=== PATIENT | female | born 1990 | race Caucasian/White ===

== ENCOUNTER 2017-04-22 10:00 | Inpatient (IN) | payer SELFPAY ==
[2017-04-22 12:26] LABS: #Eosinphils 0.2 thou/uL (0.0-0.7); #Monocytes 0.4 thou/uL (0.11-0.59); #Neutrophils 4.6 thou/uL (1.40-6.50); %Basophils 0.6 % (0.0-1.0); %Eosinophils 2.3 % (0.0-10.0); %Lymphocytes 27.8 % (21.0-51.0); %Monocytes 5.5 % (0.0-10.0); Hematocrit 39.5 % (36.0-47.0); Mean Platelet Volume 8.2 fL (7.4-10.4); White Blood Cell (WBC) Count 7.2 thou/uL (4.8-10.8)
[2017-04-22] MEDS ORDERED: Ketorolac Tromethamine 30 MG/ML VIAL ONE (12:37)
[2017-04-22 12:45] LABS: Anion Gap 12 mmol/L (10-20); BUN (Urea Nitrogen) 7 mg/dL (7.0-18.7); Calc. Creatinine Clearance 0 mL/min (70-130); Calcium 9.1 mg/dL (7.8-10.44); Carbon Dioxide 24 mmol/L (22-29); Chloride 106 mmol/L (98-107); Estimated GFR-MDRD Greater than 90
--- NOTE | 2017-04-22 13:03 | RAD ---
LEFT INDEX FINGER 3 VIEWS: Date: 04/22/17 HISTORY: Left index finger pain and swelling. FINDINGS: Soft tissue swelling is apparent. No acute fracture, dislocation, or radiopaque foreign bodies are v isible. IMPRESSION: Soft tissue swelling. No acute osseous abnormalities are demonstrated. POS: [facility]
[2017-04-22 15:06] VITALS: BMI 37.8
[2017-04-22] MEDS ORDERED: Ondansetron HCl/PF 4 MG/2 ML Vial IVP PRN (15:19)
[2017-04-22] MEDS ORDERED: Ondansetron ODT 4 MG TAB SL PRN (15:19)
[2017-04-22] MEDS ORDERED: Ketorolac Tromethamine 30 MG/ML VIAL IVP PRN (22:21)
[2017-04-22] MEDS ORDERED: ADMIXTURE FEE IVPB SCH (22:30)
[2017-04-22] MEDS ORDERED: AMPICILLIN IVPB SCH (22:30)
[2017-04-22] MEDS ORDERED: SODIUM CHLORIDE IVPB SCH (22:30)
[2017-04-22] MEDS ORDERED: SULBACTAM IVPB SCH (22:30)
[2017-04-23] MEDS: ADMIXTURE FEE IVPB SCH ×2 (05:50→14:22)
[2017-04-23] MEDS: SULBACTAM IVPB SCH ×2 (05:50→14:22)
[2017-04-23] MEDS: AMPICILLIN IVPB SCH ×2 (05:50→14:22)
[2017-04-23] MEDS: SODIUM CHLORIDE IVPB SCH ×2 (05:50→14:22)
[2017-04-23 06:37] LABS: #Basophils 0.1 thou/uL (0.0-0.2); #Eosinphils 0.2 thou/uL (0.0-0.7); #Monocytes 0.5 thou/uL (0.11-0.59); #Neutrophils 3.9 thou/uL (1.40-6.50); %Basophils 0.9 % (0.0-1.0); %Eosinophils 3.2 % (0.0-10.0); %Lymphocytes 30.5 % (21.0-51.0); %Monocytes 6.8 % (0.0-10.0); Hematocrit 36.3 % (36.0-47.0); Mean Platelet Volume 8.3 fL (7.4-10.4); Red Blood Cell (RBC) Count 4.15 mill/uL (4.20-5.40); White Blood Cell (WBC) Count 6.6 thou/uL (4.8-10.8)
[2017-04-23 12:20] VITALS: BP 134/94; TEMP 97.6
[2017-04-23] MEDS ORDERED: Sodium Chloride 0.9% 10 ML ONE (14:00)
[2017-04-23] MEDS ORDERED: cloNIDine 0.1 MG TAB PO PRN (15:38)
--- NOTE | 2017-04-23 18:09 | CON ---
DATE OF CONSULTATION: 04/23/2017 PRIMARY CARE PHYSICIAN: The patient does not have a primary care physician. CHIEF COMPLAINT: Pain and swelling in the left index finger. REASON FOR CONSULTATION: Aid in medical management. ATTENDING PHYSICIAN: Tarik Dupree M.D. HISTORY OF PRESENT ILLNESS: Ms. De Souza is a pleasant 26-year-old female that says that on Friday anant lynn woke up and noticed some swelling in her left index finger. She says it was kind of itching and b urning, and she thought it was possibly a mosquito bite or allergic reaction. She put some Benadryl on it and took some allergy medication, but then it continued, and the night prior to admission, anant lynn noticed that the area became numb and it was swelling up to the proximal joint and she started hav ing some fevers and chills, and for this reason, she felt it was best to come to have it checked out . She went to the walk-in clinic where they looked at it and told her she should go to the emergenc y room for further evaluation. There she was seen and evaluated and admitted by Dr. Dupree, the h and surgeon, and we were consulted for medical management. Currently, the patient says that after s he has been given some IV antibiotics, the swelling has gone down significantly as well as the pain, and currently, she has no specific complaints. PAST MEDICAL HISTORY: Negative. PAST SURGICAL HISTORY: She has had a x2. ALLERGIES: AMOXICILLIN. MEDICATIONS: None. SOCIAL HISTORY: She is a nonsmoker. She rarely drinks. She is and has two children. FAMILY HISTORY: No history of any inheritable diseases. PHYSICAL EXAMINATION: GENERAL: She is alert and oriented. She appears to be in no acute distress. VITAL SIGNS: Her blood pressure is 128/83, heart rate 67, respiratory rate is 16, temperature is 98 . HEENT: Pupils are equal, round, and reactive. Extraocular muscles are intact. Her sclerae are ani cteric. Throat no erythema, no exudates. NECK: No adenopathy, no bruits. LUNGS: Clear. There is no wheezing, no rales. CARDIOVASCULAR: She has a normal S1 and S2. She did have a slight flow murmur, very soft, grade 1/ 6. ABDOMEN: Soft, it is nontender, nondistended. Positive for bowel sounds. No rebound and no guardi ng. EXTREMITIES: There is some mild erythema on the MIP joint on the index finger of the left hand. Th ere is no fluctuance, just some mild erythema and swelling and just a very small amount of induratio n. She has got full mobility at the index finger and the hand. There is no surrounding erythema or streaking. LABORATORY RESULTS: Her white blood cell count 6.6, hemoglobin 12.4, hematocrit is 36.3, platelet c ount is 191. Sodium 138, potassium 3.9, chloride is 106, CO2 is 24, BUN of 7, creatinine 0.68 and g lucose is 96. ASSESSMENT AND PLAN: This is a pleasant 26-year-old female that is being admitted for cellulitis of the left index finger. Clinically, there does not appear to be any evidence of significant abscess . I would agree with continuing the IV antibiotics, as the patient is currently on ampicillin/sulba ctam. However, caution should be used since the patient has a stated allergy of amoxicillin. How er, there has been no reaction as of yet. She appears to be a fairly healthy 26-year-old without an y significant chronic illnesses. Therefore, no further recommendations from the medical standpoint other than placing her on p.r.n. medication for blood pressure should this be an issue.
--- NOTE | 2017-04-24 00:37 | HP ---
PREOPERATIVE DIAGNOSIS: Left index finger cellulitis with possible bug bite related abscess. CHIEF COMPLAINT: Left hand swelling, erythema, and pain. HISTORY OF PRESENT ILLNESS: The patient reports approximately 4-day history of progressive onset of numbness, erythema, localized pain, poor ability to move her fingers of the left hand, especially i ndex finger. Afterwards she felt might be a \\\\"bug bite\\\\" which she did not actually visualize. S he has had never had such problem in the past. She reports local numbness and tingling, burning sen sation with motion especially flexion and sensation of warmth along the finger. PAST MEDICAL HISTORY: Noncontributory to include the patient is nulliparous and is a student. She reports no limitation in activities of daily living and is fully able to work. PHYSICAL EXAMINATION: The patient is awake, alert and oriented x3, mildly obese female, who is in n o acute distress except for the left upper extremity. Here, she has pain with passive extension and flexion beyond approximately 20-30 degrees in each direction at this digit interphalangeal and meta carpophalangeal joints. There is minimal lymphadenitis seen in the axillary region or in the medial epicondyle. She has T1. There is an area of erythema approximately 5 cm, seen around the ar ea of slightly raised region with no fluctuance in the center of the dorsal proximal phalanx of the left index finger. There is no pain with stretch, no fusiform swelling along the tendon sheath, and as a matter of fact, the flexor sheath is totally uninvolved, and there is no break in the skin or wound. ASSESSMENT AND RECOMMENDATIONS: Cellulitis with and without abscess: Recommend the patient to have 24 hours of IV medications to fight an abscess. If this resolves or nearly completely resolves, di emersonge on oral medication. If it does not, the patient will stay in the hospital.
--- NOTE | 2017-04-24 07:39 | DIS ---
ADMISSION DIAGNOSIS: Left index finger cellulitis. DISCHARGE DIAGNOSIS: Left index finger cellulitis. HOSPITAL COURSE: The patient was admitted after evaluation in the emergency room by josafat Desouza here it looked like she may have early abscess, but had a low white blood cell count, and history of unknown etiologies for the left index finger. She felt it might be secondary to bug bite. There i s a small central thickened area of less than 1 mm only, but no evidence of fluctuance. She underwent 24 hours of IV antibiotics and a 5 cm area was down to 5 mm area of erythema with no f luctuance. No swelling or tenderness seen. The borderline pain that she had around the joints in t his area has gone by the time of this evaluation, 1700 hours on 04/23/2017. ASSESSMENT ABD RECOMMENDATIONS: Resolving cellulitis. Plan regular diet. She will be able to do a ctivity as tolerated. She told me that she does not work and has duties around the house. We treat ed her with clindamycin antibiotics 300 mg 1 tablet 3 times a day, and for pain, Toradol, which also will help with the swelling and erythema. I warned the patient that on follow-up 5 days from now o n Friday, if not completely resolved, then she will need to have incision and drainage as an outpati ent here in the hospital at [facility].
== END 2017-04-23 18:45 | disposition home or self-care (01) | DRG 603 ==
LOC: ERS 10:00 → SURG A 12:30 → 3SE 04-23 11:11
PROVIDERS: ADMIT Orthopaedic Surgery Hand Surgery; ATTEND Orthopaedic Surgery Hand Surgery
DX: L03.012 Cellulitis of left finger (principal); L02.512 Cutaneous abscess of left hand; S60.461A Insect bite (nonvenomous) of left index finger, initial encounter; Z88.0 Allergy status to penicillin; W57.XXXA Bitten or stung by nonvenomous insect and other nonvenomous arthropods, initial encounter
CPT/HCPCS: 36415; 80048; 85025; 85652; 86140; 96365; 96366; 96368; 96375; A4216; J0295; J0744; J1885; J3370; J7050

== ENCOUNTER 2017-08-31 09:52 | Emergency (ER) | payer SELFPAY ==
[2017-08-31 11:32] LABS: Bilirubin Negative (Negative); Blood, Urine Small (Negative); Clarity CLOUDY (Clear); Glucose, Urine (Dipstick) Negative (Negative); Leukocyte Negative (Negative); Nitrite Negative (Negative); Protein, Urine (Dipstick) Trace mg/dL (Neg-Trace); Specific Gravity, Urine 1.021 (1.002-1.036); pH, Urine 5.5 (5.0-9.0)
[2017-08-31 11:34] LABS: Bacteria/HPF None Seen HPF (None Seen); Hyaline Casts/LPF 4-6 HYALINE CAST LPF (0-3 Hyaline); Pathc Cast-AUWi Flag 0.94 (0-2.49); WBC/HPF 0-3 HPF (0-3)
[2017-08-31 11:35] LABS: Pregnancy Test - Urine (BHCG) Negative (Negative); Pregu Control Background? CLEAR/WHITE (CLR/WHITE); Pregu Control Bar Appear? YES (CONTROL BAR); Specific Gravity 1.021 (1.002-1.036)
[2017-08-31 11:53] LABS: ALT (SGPT) 39 U/L (8-55); AST (SGOT) 25 U/L (5-34); Albumin 4.1 g/dL (3.5-5.0); Alkaline Phosphatase 70 U/L (40-150); Anion Gap 13 mmol/L (10-20); BUN (Urea Nitrogen) 9 mg/dL (7.0-18.7); Bilirubin, Total 0.4 mg/dL (0.2-1.2); Calc. Creatinine Clearance 0 mL/min (70-130); Carbon Dioxide 20 mmol/L (22-29); Chloride 106 mmol/L (98-107); Estimated GFR-MDRD Greater than 90; Glucose 112 mg/dL (70-105); Protein, Total 7.1 g/dL (6.0-8.3); Sodium 135 mmol/L (136-145)
[2017-08-31 12:06] LABS: #Basophils 0.1 thou/uL (0.0-0.2); #Eosinphils 0.1 thou/uL (0.0-0.7); #Lymphocytes 1.9 thou/uL (1.20-3.40); #Monocytes 0.4 thou/uL (0.11-0.59); #Neutrophils 5.3 thou/uL (1.40-6.50); %Basophils 0.9 % (0.0-1.0); %Eosinophils 1.9 % (0.0-10.0); %Lymphocytes 24.2 % (21.0-51.0); %Monocytes 4.6 % (0.0-10.0); %Neutrophils 68.5 % (42.0-75.0); Hemoglobin 13.9 g/dL (12.0-16.0); Mean Corpuscular HGB CONC 34.7 g/dL (32.0-36.0); Mean Corpuscular Hemoglobin 30.2 pg (27.0-31.0); Mean Platelet Volume 7.7 fL (7.4-10.4); Platelet Count 213 thou/uL (130-400); RBC Distribution Width 11.9 % (11.5-14.5); White Blood Cell (WBC) Count 7.7 thou/uL (4.8-10.8)
--- NOTE | 2017-08-31 12:52 | ULT ---
TRANSABDOMINAL TRANSVAGINAL PELVIC ULTRASOUND: INDICATION: Pelvic pain. TECHNIQUE: Mejia scale, color vascular duplex with spectral analysis was performed of the pelvis. FINDINGS: The uterus measures 8.2 x 4.9 x 5.3 cm. The uterus is retroverted in positioning. The endometrial s tripe measured 1.2 cm. The right ovary measures 2.7 x 1.5 x 1.5 cm. The left ovary measures 2.6 x 2.2 cm. There is normal flow to both ovaries. A small amount of free fluid is present within the pelvis. IMPRESSION: No acute sonographic abnormality within the pelvis. POS: [facility]
== END 2017-08-31 12:28 | disposition home or self-care (01) ==
LOC: ERS 09:52
DX: R10.32 Left lower quadrant pain (principal); R10.31 Right lower quadrant pain; R11.2 Nausea with vomiting, unspecified; I10 Essential (primary) hypertension; Z87.891 Personal history of nicotine dependence
CPT/HCPCS: 36415; 76856; 80053; 81003; 81015; 81025; 85025

== ENCOUNTER 2017-11-01 03:07 | Emergency (ER) | payer SELFPAY ==
[2017-11-01] MEDS ORDERED: cefTRIAXone\\ROCEPHIN 2 GM VIAL ONE (03:53)
[2017-11-01] MEDS ORDERED: Dexamethasone 10 MG/ML VIAL ONE (03:53)
[2017-11-01] MEDS ORDERED: Lidocaine 1% PF 5 ML VIAL ONE (03:54)
--- NOTE | 2017-11-01 08:09 | RAD ---
PORTABLE CHEST: Date: 11/01/17 HISTORY: Cough. FINDINGS: Lungs are clear. Heart and mediastinum unremarkable. IMPRESSION: No acute abnormality. POS: [facility]
== END 2017-11-01 04:30 | disposition home or self-care (01) ==
LOC: ERS 03:07
DX: J01.90 Acute sinusitis, unspecified (principal); Z87.891 Personal history of nicotine dependence
CPT/HCPCS: 71045; 96372; J0696; J1100; J2001

== ENCOUNTER 2018-04-01 10:29 | Emergency (ER) | payer SELFPAY ==
[2018-04-01 11:12] LABS: #Basophils 0.1 thou/uL (0.0-0.2); #Eosinphils 0.2 thou/uL (0.0-0.7); #Lymphocytes 1.9 thou/uL (1.20-3.40); #Monocytes 0.4 thou/uL (0.11-0.59); #Neutrophils 4.8 thou/uL (1.40-6.50); %Basophils 0.8 % (0.0-1.0); %Eosinophils 2.3 % (0.0-10.0); %Lymphocytes 26.5 % (21.0-51.0); %Monocytes 4.9 % (0.0-10.0); %Neutrophils 65.5 % (42.0-75.0); Hemoglobin 13.4 g/dL (12.0-16.0); Mean Corpuscular HGB CONC 33.9 g/dL (32.0-36.0); Mean Corpuscular Hemoglobin 29.5 pg (27.0-31.0); Mean Platelet Volume 7.8 fL (7.4-10.4); Platelet Count 223 thou/uL (130-400); RBC Distribution Width 11.8 % (11.5-14.5); Red Blood Cell (RBC) Count 4.55 mill/uL (4.20-5.40); White Blood Cell (WBC) Count 7.3 thou/uL (4.8-10.8)
[2018-04-01 11:44] LABS: ALT (SGPT) 51 U/L (8-55); AST (SGOT) 38 U/L (5-34); Albumin 4.3 g/dL (3.5-5.0); Alkaline Phosphatase 72 U/L (40-150); Anion Gap 12 mmol/L (10-20); BUN (Urea Nitrogen) 8 mg/dL (7.0-18.7); Bilirubin, Total 0.8 mg/dL (0.2-1.2); Calc. Creatinine Clearance 0 mL/min (70-130); Calcium 9.3 mg/dL (7.8-10.44); Carbon Dioxide 23 mmol/L (22-29); Chloride 104 mmol/L (98-107); Estimated GFR-MDRD Greater than 90; Globulin 2.9 g/dL (2.4-3.5); Glucose 108 mg/dL (70-105); Lipase 25 U/L (8-78); Potassium 3.8 mmol/L (3.5-5.1); Protein, Total 7.2 g/dL (6.0-8.3); Sodium 135 mmol/L (136-145)
[2018-04-01 11:50] LABS: Bilirubin Negative (Negative); Blood, Urine Negative (Negative); Clarity CLEAR (Clear); Glucose, Urine (Dipstick) Negative (Negative); Leukocyte Negative (Negative); Nitrite Negative (Negative); Protein, Urine (Dipstick) Trace mg/dL (Neg-Trace); Specific Gravity, Urine 1.019 (1.002-1.036); Urobilinogen 0.2 mg/dL (0.2-1.0); pH, Urine 5.5 (5.0-9.0)
[2018-04-01 11:54] LABS: Pregnancy Test - Urine (BHCG) Negative (Negative); Pregu Control Background? CLEAR/WHITE (CLR/WHITE); Pregu Control Bar Appear? YES (CONTROL BAR); Specific Gravity 1.019 (1.002-1.036)
== END 2018-04-01 12:26 | disposition home or self-care (01) ==
LOC: ERS 10:29
DX: N92.6 Irregular menstruation, unspecified (principal); Z87.891 Personal history of nicotine dependence
CPT/HCPCS: 36415; 80053; 81003; 81025; 83690; 85025; 99284

== ENCOUNTER 2018-06-11 13:29 | Emergency (ER) | payer SELFPAY ==
[2018-06-11] MEDS ORDERED: Lidocaine 1% (PF) 30 ML VIAL ONE (14:04)
[2018-06-11] MEDS ORDERED: Adacel (T-DAP) 0.5 ML SYRINGE ONE (14:28)
== END 2018-06-11 14:36 | disposition home or self-care (01) ==
LOC: ERS 13:29
DX: L02.411 Cutaneous abscess of right axilla (principal); Z87.891 Personal history of nicotine dependence
CPT/HCPCS: 10061; 90471; 90715; J2001

== ENCOUNTER 2018-06-15 07:42 | Emergency (ER) | payer SELFPAY | END 2018-06-15 09:01 | disposition home or self-care (01) | LOC: ERS 07:42 | DX: Z48.817 Encounter for surgical aftercare following surgery on the skin and subcutaneous tissue (principal); Z87.891 Personal history of nicotine dependence; Z79.899 Other long term (current) drug therapy | CPT/HCPCS: 99282 ==

== ENCOUNTER 2018-08-18 03:58 | Observation (INO) | payer SELFPAY ==
[2018-08-18 04:45] LABS: BHCG - Serum Negative (NEGATIVE); Pregs Control Background? CLEAR/WHITE (CLR/WHITE); Pregs Control Bar Appear? YES (CONTROL BAR)
[2018-08-18 04:46] LABS: #Basophils 0.1 thou/uL (0.0-0.2); #Eosinphils 0.2 thou/uL (0.0-0.7); #Lymphocytes 2.1 thou/uL (1.20-3.40); #Monocytes 0.6 thou/uL (0.11-0.59); #Neutrophils 4.1 thou/uL (1.40-6.50); %Basophils 1.3 % (0.0-1.0); %Eosinophils 3.4 % (0.0-10.0); %Lymphocytes 29.1 % (21.0-51.0); %Monocytes 8.3 % (0.0-10.0); %Neutrophils 57.9 % (42.0-75.0); Hemoglobin 13.5 g/dL (12.0-16.0); Mean Corpuscular HGB CONC 34.3 g/dL (32.0-36.0); Mean Corpuscular Hemoglobin 30.5 pg (27.0-31.0); Mean Corpuscular Volume 88.9 fL (78.0-98.0); Mean Platelet Volume 8.5 fL (7.4-10.4); Platelet Count 228 thou/uL (130-400); RBC Distribution Width 12.1 % (11.5-14.5); Red Blood Cell (RBC) Count 4.43 mill/uL (4.20-5.40); White Blood Cell (WBC) Count 7.1 thou/uL (4.8-10.8)
[2018-08-18 05:02] LABS: ALT (SGPT) 54 U/L (8-55); AST (SGOT) 36 U/L (5-34); Albumin 4.1 g/dL (3.5-5.0); Alkaline Phosphatase 80 U/L (40-150); Anion Gap 15 mmol/L (10-20); BUN (Urea Nitrogen) 10 mg/dL (7.0-18.7); Bilirubin, Total 0.4 mg/dL (0.2-1.2); Calc. Creatinine Clearance 0 mL/min (70-130); Calcium 9.2 mg/dL (7.8-10.44); Carbon Dioxide 21 mmol/L (22-29); Chloride 107 mmol/L (98-107); Estimated GFR-MDRD Greater than 90; Globulin 2.9 g/dL (2.4-3.5); Glucose 151 mg/dL (70-105); Lipase 34 U/L (8-78); Potassium 3.9 mmol/L (3.5-5.1); Sodium 139 mmol/L (136-145)
[2018-08-18] MEDS ORDERED: Ondansetron PF 4 MG/2 ML Vial ONE ×3 (05:10→15:04)
[2018-08-18] MEDS ORDERED: Levofloxacin 500 mg/D5W 100 ml Premix Bag ONE (07:55)
--- NOTE | 2018-08-18 08:07 | HP ---
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 Has for the past 4 to 6 weeks experienced epigastric right upper quadrant pain with nausea postprandial. She presents to the emergency room with ongoing unrelenting pain. Ultrasound reveals gallstones. Plan is for laparoscopic cholecystectomy as an outpatient today. ALLERGIES: AMOXICILLIN. SOCIAL HISTORY: Tobacco, none. Alcohol, none. MEDICATIONS: None. PAST SURGICAL AND MEDICAL HISTORY: Noncontributory except for 2 C-sections. REVIEW OF SYSTEMS: Noncontributory. PHYSICAL EXAMINATION: VITAL SIGNS: Blood pressure 120/64, respiratory rate 18, and heart rate is 68. HEAD, EARS, EYES, NOSE, AND THROAT: Unremarkable. Sclerae nonicteric. LUNGS: Clear to auscultation. CARDIAC: Regular rate and rhythm. No murmur or gallop. ABDOMEN: Soft. Tenderness in the epigastrium with guarding. EXTREMITIES: Unremarkable. NEUROLOGIC: Intact. No focal deficits. SKIN: Nonjaundiced. LABORATORY DATA: White count 7 and hemoglobin 13. Comprehensive metabolic profile normal. Liver function tests normal. DIAGNOSTIC DATA: Ultrasound reveals gallstones with normal bile duct caliber. ASSESSMENT AND PLAN: Cholecystitis, cholelithiasis. We will recommend laparoscopic video cholecystectomy. Risks of infection, bleeding, visceral and biliary injury explained. Questions answered. Postoperative pain control consisting over-the- counter Tylenol 1000 mg a day and ibuprofen 200 mg 2 to 3 tablets 4 times a day. Diet and activity as tolerated without lifting restrictions discussed. Questions answered. Job ID: [id number]
[2018-08-18] MEDS ORDERED: Morphine 4 MG/ML VIAL ONE (08:47)
--- NOTE | 2018-08-18 09:01 | ULT ---
PRELIMINARY REPORT/[facility]/EMERGENTY AFTER-HOURS PROCEDURE US Abdomen Limited, Right Upper Quadrant EXAM DATE/TIME: 08/18/2018 4:31 AM CLINICAL HISTORY: 28 years old, female; Pain and signs and symptoms; Nausea and vomiting; Abdominal pain; Other:NEpigas tric to ruq; Patient HX: Ruq pain (on/off) x 1 month, worse tonight TECHNIQUE: Real-time ultrasound of the abdomen with image documentation. Examination was focused on the right up per quadrant. COMPARISON: No relevant prior studies available. FINDINGS: Liver: Enlarged and diffusely echogenic. Gallbladder: Non-mobile stone in the gallbladder neck. Wall thickness within normal limits, 2-3 mm. N Positive Salazar's sign reported. Common bile duct: Upper limit of normal in caliber, 6 mm. Pancreas: Mostly obscured by bowel gas. Visualized portion unremarkable. Right kidney: Unremarkable. No hydronephrosis. IMPRESSION: 1. Non-mobile stone in the gallbladder neck, wall thickness within normal limits. Upper normal common bile duct caliber. 2. Enlarged liver with steatosis. Thank you for allowing us to participate in the care of your patient. Dictated and Authenticated by: Vaibhav Garcia MD 08/18/2018 5:29 AM Central Time ([place] & [place]) FINAL REPORT GALLBLADDER ULTRASOUND: HISTORY: Right upper quadrant pain. COMPARISON: None. TECHNIQUE: Utilizing a multihertz transducer, sonographic imaging of the right upper quadrant is performed in th e longitudinal and transverse plane. FINDINGS: This report is in agreement with the preliminary report by [facility]. There is increased echogenicity of t he liver which may be due to hepatic steatosis or hepatocellular disease. If there is concern for he patic masses, liver mass protocol CT can be performed. There is evidence of hepatomegaly. There is a nonmobile stone in the gallbladder neck. Gallbladder wall thickness is within normal limits. Croft renato, positive Salazar's sign is reported. HIDA scan would be beneficial. Common bile duct diameter a t the upper limits of normal measuring 0.6 cm. POS: [facility]
[2018-08-18 09:26] LABS: Bilirubin Negative (Negative); Blood, Urine Negative (Negative); Clarity CLEAR (Clear); Glucose, Urine (Dipstick) Negative (Negative); Leukocyte Negative (Negative); Nitrite Negative (Negative); Protein, Urine (Dipstick) Negative (Neg-Trace); Specific Gravity, Urine 1.017 (1.002-1.036); Urobilinogen 0.2 mg/dL (0.2-1.0)
[2018-08-18 10:38] VITALS: BMI 41.1
[2018-08-18] MEDS ORDERED: Lactated Ringer's 1,000 ML IV SCH (10:45)
[2018-08-18] MEDS ORDERED: Acetaminophen 1,000 MG in Premix Bag 1 BAG IVPB SCH (11:00)
[2018-08-18] MEDS ORDERED: Ketorolac Tromethamine 30 MG/ML VIAL IVP SCH (11:00)
[2018-08-18] MEDS ORDERED: Scopolamine 1.5 mg/72 hour Patch TOP SCH (11:00)
[2018-08-18] MEDS ORDERED: Ibuprofen 600 MG TAB PO PRN (13:36)
[2018-08-18] MEDS ORDERED: traMADol HCl 50 MG TAB PO PRN ×3 (13:36→17:11)
[2018-08-18] MEDS ORDERED: Acetaminophen 500 MG TAB PO PRN (13:36)
[2018-08-18] MEDS ORDERED: Ketorolac Tromethamine 30 MG/ML VIAL ONE (13:44)
[2018-08-18] MEDS ORDERED: Bupivacaine HCl 0.5%/Epinephrine 1:200,000/PF 30 ml Vial ONE (13:46)
[2018-08-18] MEDS ORDERED: Iothalamate Meglumine 60% 50 ML VIAL FS ONE (13:48)
[2018-08-18] MEDS ORDERED: Fentanyl 100 MCG/2 ML VIAL ONE ×2 (13:51→14:59)
[2018-08-18] MEDS ORDERED: Midazolam HCl 2 mg/2 ml Vial ONE (14:03)
[2018-08-18] MEDS ORDERED: SUGAMMADEX SODIUM 200 MG/2 ML VIAL ONE (14:44)
[2018-08-18] MEDS ORDERED: Promethazine HCl 25 MG/ML VIAL ONE (15:01)
[2018-08-18] MEDS ORDERED: Glycopyrrolate 0.2 MG/ML 5 ML SYRINGE ONE (15:04)
[2018-08-18] MEDS ORDERED: Dexamethasone 20 MG/5 ML VIAL ONE (15:04)
[2018-08-18] MEDS ORDERED: Rocuronium Bromide 10 MG/ML (10ML VIAL) ONE (15:04)
[2018-08-18] MEDS ORDERED: PROPOFOL 200 MG/20 ML VIAL ONE (15:04)
[2018-08-18] MEDS ORDERED: Lidocaine 1% PF 5 ML VIAL ONE (15:04)
[2018-08-18] MEDS ORDERED: Promethazine HCl 25 MG/ML VIAL IM/IV PRN (15:50)
[2018-08-18] MEDS ORDERED: Ondansetron HCl/PF 4 MG/2 ML Vial IVP PRN (15:50)
[2018-08-18] MEDS ORDERED: Non-Formulary Medication 1 EACH PO PRN (15:50)
--- NOTE | 2018-08-18 16:21 | OP ---
DATE OF PROCEDURE: 08/18/2018 PREOPERATIVE DIAGNOSES: 1. Cholecystitis. 2. Cholelithiasis. POSTOPERATIVE DIAGNOSES: 1. Cholecystitis. 2. Cholelithiasis. PROCEDURE PERFORMED: Laparoscopic video cholecystectomy. SURGEON: Rashad Lund MD ANESTHESIA: General, local 0.5% Marcaine with epinephrine 30 mL. DESCRIPTION OF PROCEDURE: The patient was taken to the operating room, where under general anesthesia, abdomen was prepared with ChloraPrep and draped in routine fashion. Local anesthetic was infiltrated in the skin and subcutaneous tissue at each port site. 0.5% Marcaine with epinephrine 30 mL, total volume used. An infraumbilical incision was made. Pneumoperitoneum to 15 mmHg was obtained with Veress needle, replaced with a 5 port, laparoscope inserted. Right subxiphoid incision was made and 11 port placed. Right subcostal incision was made. Midclavicular and anterior axillary lines and 5 ports placed. The fundus of the gallbladder was grasped at the cephalad. Infundibulum grasped and reflected laterally. Cystic artery and duct were dissected free. Critical view obtained. Cystic artery and duct double clipped proximally, divided. Gallbladder was dissected free from liver bed obtaining good hemostasis prior to division of the final attachments. Gallbladder and contents removed, submitted to Pathology. There was large stone obstructing the gallbladder outlet. Hemostasis was ensured with the cautery. Irrigant and pneumoperitoneum evacuated. All instruments removed. All skin incisions were approximated with interrupted subdermal 4-0 Monocryl and [place] glue applied. Job ID: [id number]
--- NOTE | 2018-08-18 16:25 | DIS ---
DATE OF ADMISSION: 08/18/2018 DATE OF DISCHARGE: 08/18/2018 DISCHARGE DIAGNOSES: 1. Cholecystitis. 2. Cholelithiasis. 3. Elevated glucose. Encouraged to see her primary care physician for glucose testing. HISTORY: A 28-year-old female, 2, para 2, has gained weight recently. She has been experiencing last several weeks episodes of epigastric right upper quadrant pain, nausea postprandial. She presented to the emergency room with unrelenting pain and ultrasound revealed gallstones, normal liver function tests and lipase. She received Levaquin, Toradol, affirmatively hospitalized on the floor because of unavailability of the OR and then underwent laparoscopic cholecystectomy and discharged home postoperatively. Follow up in my office in 2 to 3 weeks. Diet and activity as tolerated. No lifting restrictions. Ultram #20 for pain refractory to Tylenol [id number] 1000 q.i.d. and Motrin [id number] 400-600 mg q.i.d. p.r.n. Job ID: [id number]
[2018-08-19 07:58] LABS: #Lymphocytes 1.4 thou/uL (1.20-3.40); #Monocytes 0.5 thou/uL (0.11-0.59); #Neutrophils 10.7 thou/uL (1.40-6.50); %Basophils 0.2 % (0.0-1.0); %Eosinophils 0.2 % (0.0-10.0); %Lymphocytes 11.4 % (21.0-51.0); %Monocytes 3.7 % (0.0-10.0); %Neutrophils 84.6 % (42.0-75.0); Hemoglobin 12.8 g/dL (12.0-16.0); Mean Corpuscular HGB CONC 33.3 g/dL (32.0-36.0); Mean Corpuscular Volume 90.1 fL (78.0-98.0); Mean Platelet Volume 8.4 fL (7.4-10.4); Platelet Count 251 thou/uL (130-400); RBC Distribution Width 11.9 % (11.5-14.5); Red Blood Cell (RBC) Count 4.28 mill/uL (4.20-5.40); White Blood Cell (WBC) Count 12.7 thou/uL (4.8-10.8)
[2018-08-19 08:10] LABS: ALT (SGPT) 64 U/L (8-55); AST (SGOT) 44 U/L (5-34); Albumin 3.8 g/dL (3.5-5.0); Alkaline Phosphatase 78 U/L (40-150); Bilirubin, Direct 0.2 mg/dL (0.1-0.3); Bilirubin, Total 0.5 mg/dL (0.2-1.2); Protein, Total 6.3 g/dL (6.0-8.3)
[2018-08-19 12:27] VITALS: BP 132/86; TEMP 97.9
--- NOTE | 2018-08-19 13:10 | PRG ---
DATE OF SERVICE: 08/19/2018 SUBJECTIVE: Ms. De Souza is doing well. She stayed overnight because of pain control. This morning, she feels good, although, she feels weaker. CBC and liver function tests are normal. She is tolerating a regular diet. OBJECTIVE: VITAL SIGNS: Temperature 97 degrees and blood pressure 132/86. LUNGS: Clear to auscultation. CARDIAC: Regular rate and rhythm. No murmur or gallop. ABDOMEN: Soft and nontender. ASSESSMENT: Status post laparoscopic cholecystectomy. PLAN: Discharge home. Follow up in my office in 2 to 3 weeks. Diet and activity as tolerated. No lifting restrictions. Home with Tylenol, ibuprofen and Ultram, if needed. Job ID: [id number]
--- NOTE | 2018-08-19 15:07 | DIS ---
DATE OF ADMISSION: 08/18/2018 DATE OF DISCHARGE: 08/19/2018 ADDENDUM: Ms. De Souza was to go home last night, but had too much pain and stayed overnight. Her liver function tests and CBC are normal. This morning, she will be discharged home. Lungs are clear to auscultation. Cardiac, regular rate and rhythm, without murmur or gallop. Abdomen is soft, nontender. Surgical sites, laparoscopic incision, well healed. Temperature 97.9 degrees, heart rate 96, blood pressure 132/86. The patient was informed of her glucose 151 and suggested that she lose weight and that she see her primary care doctor to evaluate her for early diabetes. Job ID: [id number]
== END 2018-08-19 13:45 | disposition home or self-care (01) ==
LOC: ERS 03:58 → SURG A 08:55
PROVIDERS: ADMIT Specialist; ATTEND Specialist
PROC: 0FT44ZZ Resection of Gallbladder, Percutaneous Endoscopic Approach (ICD-10-PCS; principal; 2018-08-19)
DX: K80.10 Calculus of gallbladder with chronic cholecystitis without obstruction (principal); R73.02 Impaired glucose tolerance (oral); Z87.891 Personal history of nicotine dependence; Z88.0 Allergy status to penicillin; Z91.030 Bee allergy status; Z91.018 Allergy to other foods
CPT/HCPCS: 36415; 76705; 80053; 80076; 81003; 83690; 84703; 85025; 88304; 96361; 96365; 96375; G0378; J0131; J0670; J1100; J1610; J1885; J1956; J2001; J2250; J2270; J2405; J2550; J2704; J3010; Q9961

== ENCOUNTER 2018-10-25 22:14 | Emergency (ER) | payer SELFPAY ==
[2018-10-26] MEDS ORDERED: Lidocaine 1% w/Epinephrine 1:100K 20 ML VIAL ONE (01:30)
== END 2018-10-26 02:05 | disposition home or self-care (01) ==
LOC: ERS 22:14
DX: L02.411 Cutaneous abscess of right axilla (principal); Z87.891 Personal history of nicotine dependence
CPT/HCPCS: 10060; J2001

== ENCOUNTER 2019-01-08 22:04 | Emergency (ER) | payer SELFPAY ==
[2019-01-08 22:47] LABS: #Basophils 0.1 thou/uL (0.0-0.2); #Eosinphils 0.2 thou/uL (0.0-0.7); #Lymphocytes 2.3 thou/uL (1.20-3.40); #Monocytes 0.4 thou/uL (0.11-0.59); #Neutrophils 5.6 thou/uL (1.40-6.50); %Basophils 0.8 % (0.0-1.0); %Eosinophils 2.4 % (0.0-10.0); %Lymphocytes 27.3 % (21.0-51.0); %Monocytes 4.3 % (0.0-10.0); %Neutrophils 65.2 % (42.0-75.0); Hemoglobin 14.2 g/dL (12.0-16.0); Mean Corpuscular HGB CONC 34.5 g/dL (32.0-36.0); Mean Corpuscular Hemoglobin 30.1 pg (27.0-31.0); Mean Corpuscular Volume 87.5 fL (78.0-98.0); Mean Platelet Volume 8.5 fL (7.4-10.4); Platelet Count 215 thou/uL (130-400); RBC Distribution Width 11.7 % (11.5-14.5); Red Blood Cell (RBC) Count 4.71 mill/uL (4.20-5.40); White Blood Cell (WBC) Count 8.6 thou/uL (4.8-10.8)
[2019-01-08 23:09] LABS: ALT (SGPT) 69 U/L (8-55); AST (SGOT) 46 U/L (5-34); Albumin 4.4 g/dL (3.5-5.0); Alkaline Phosphatase 80 U/L (40-150); Anion Gap 14 mmol/L (10-20); BUN (Urea Nitrogen) 13 mg/dL (7.0-18.7); Bilirubin, Total 0.4 mg/dL (0.2-1.2); Calc. Creatinine Clearance 0 mL/min (70-130); Calcium 9.7 mg/dL (7.8-10.44); Carbon Dioxide 23 mmol/L (22-29); Chloride 106 mmol/L (98-107); Estimated GFR-MDRD 89; Glucose 127 mg/dL (70-105); Lipase 38 U/L (8-78); Potassium 3.6 mmol/L (3.5-5.1); Protein, Total 7.4 g/dL (6.0-8.3); Sodium 139 mmol/L (136-145)
[2019-01-08 23:35] LABS: Pregnancy Test - Urine (BHCG) Negative (Negative); Pregu Control Background? CLEAR/WHITE (CLR/WHITE); Pregu Control Bar Appear? YES (CONTROL BAR)
[2019-01-08] MEDS ORDERED: Ketorolac Tromethamine 30 MG/ML VIAL ONE (23:37)
[2019-01-08 23:39] LABS: Bacteria/HPF None Seen HPF (None Seen); Bilirubin Negative (Negative); Blood, Urine Negative (Negative); Clarity Turbid (Clear); Glucose, Urine (Dipstick) Normal (Negative); Leukocyte 250 Leu/uL (Negative); Nitrite Negative (Negative); Protein, Urine (Dipstick) 50 mg/dL (Neg-Trace); RBC/HPF None Seen HPF (0-3); Squamous Epithelial 21-50 HPF (0-3); Urobilinogen Normal mg/dL (Less than 2); WBC/HPF 21-50 HPF (0-3)
--- NOTE | 2019-01-09 08:15 | ULT ---
PELVIC ULTRASOUND WITH CHRISTIANSEN SCALE AND DOPPLER COLOR FLOW IMAGING TRANSVAGINAL AND TRANSABDOMINAL SONOGRAPHIC IMAGING OF PELVIS: Date: 01/09/19 CLINICAL INDICATION: Emergency exam for pelvic pain. FINDINGS: The uterus is grossly unremarkable. Doppler evaluation does reveal flow to each ovary, with vascular waveforms elicited. Small physiologic appearing ovarian follicles are seen. No significant free pelvi c fluid. Endometrium is 8 mm in thickness, which is within normal limits for patient's age. IMPRESSION: No evidence of acute abnormality of the pelvis identified by sonographic evaluation. POS: [facility]
== END 2019-01-09 01:57 | disposition home or self-care (01) ==
LOC: ERS 22:04
DX: N39.0 Urinary tract infection, site not specified (principal); Z87.891 Personal history of nicotine dependence
CPT/HCPCS: 36415; 76856; 80053; 81003; 81015; 81025; 83690; 85025; 96372; J1885

== ENCOUNTER 2019-08-07 03:22 | Emergency (ER) | payer SELFPAY ==
[2019-08-07] MEDS ORDERED: diphenhydrAMINE 25 MG CAP ONE (03:50)
[2019-08-07] MEDS ORDERED: predniSONE 20 MG TAB ONE (03:50)
[2019-08-07] MEDS ORDERED: Famotidine 20 MG TAB ONE (03:50)
== END 2019-08-07 07:11 | disposition home or self-care (01) ==
LOC: ERS 03:22
DX: T78.40XA Allergy, unspecified, initial encounter (principal); Z79.899 Other long term (current) drug therapy
CPT/HCPCS: 87081; 87430; 99284; J7512; Q0163

== ENCOUNTER 2019-08-17 07:12 | Emergency (ER) | payer SELFPAY ==
[2019-08-17 07:49] LABS: #Basophils 0.1 thou/uL (0.0-0.2); #Eosinphils 0.2 thou/uL (0.0-0.7); #Lymphocytes 2.5 thou/uL (1.20-3.40); #Monocytes 0.5 thou/uL (0.11-0.59); #Neutrophils 5.1 thou/uL (1.40-6.50); %Basophils 1.2 % (0.0-1.0); %Eosinophils 2.8 % (0.0-10.0); %Lymphocytes 29.4 % (21.0-51.0); %Monocytes 5.5 % (0.0-10.0); %Neutrophils 61.1 % (42.0-75.0); Hemoglobin 13.4 g/dL (12.0-16.0); Mean Corpuscular HGB CONC 34.2 g/dL (32.0-36.0); Mean Corpuscular Hemoglobin 29.8 pg (27.0-31.0); Mean Corpuscular Volume 87.1 fL (78.0-98.0); Mean Platelet Volume 8.6 fL (7.4-10.4); Platelet Count 211 thou/uL (130-400); RBC Distribution Width 12.2 % (11.5-14.5); Red Blood Cell (RBC) Count 4.49 mill/uL (4.20-5.40); White Blood Cell (WBC) Count 8.4 thou/uL (4.8-10.8)
[2019-08-17 08:10] LABS: ALT (SGPT) 45 U/L (8-55); AST (SGOT) 28 U/L (5-34); Albumin 4.2 g/dL (3.5-5.0); Alkaline Phosphatase 76 U/L (40-110); Anion Gap 13 mmol/L (10-20); BUN (Urea Nitrogen) 9 mg/dL (7.0-18.7); Bilirubin, Total 0.4 mg/dL (0.2-1.2); Calc. Creatinine Clearance 0 mL/min (70-130); Carbon Dioxide 26 mmol/L (22-29); Chloride 104 mmol/L (98-107); Estimated GFR-MDRD Greater than 90; Globulin 2.6 g/dL (2.4-3.5); Glucose 114 mg/dL (70-105); Potassium 4.3 mmol/L (3.5-5.1); Protein, Total 6.8 g/dL (6.0-8.3); Sodium 139 mmol/L (136-145)
--- NOTE | 2019-08-17 09:01 | RAD ---
CHEST 1 VIEW PORTABLE: HISTORY: Chest pain that began in the middle of the night, cough. COMPARISON: 11/01/2017. FINDINGS: Heart size is normal. The lungs are clear. No confluent pneumonia, overt edema, or pleural effusion . IMPRESSION: No acute intrathoracic disease. POS: [facility]
== END 2019-08-17 10:15 | disposition home or self-care (01) ==
LOC: ERS 07:12
DX: R07.9 Chest pain, unspecified (principal)
CPT/HCPCS: 36415; 71045; 80053; 84484; 85025; 93005

== ENCOUNTER 2019-08-26 02:37 | Emergency (ER) | payer SELFPAY ==
--- NOTE | 2019-08-26 07:38 | RAD ---
XR Chest Pa Lat STANDARD History: Cough Comparison: Radiograph August 17, 2019 Findings: Lungs are clear. No pneumothorax or effusion. Cardiac silhouette and mediastinal contours a re within normal limits. No acute osseous abnormality. Impression: No acute intrathoracic abnormality.
--- NOTE | 2019-08-29 00:53 | EKG ---
Test Reason : Blood Pressure : / mmHG Vent. Rate : 073 BPM Atrial Rate : 073 BPM P-R Int : 142 ms QRS Dur : 084 ms QT Int : 394 ms P-R-T Axes : 020 027 005 degrees QTc Int : 434 ms Normal sinus rhythm Cannot rule out Anterior infarct , age undetermined Abnormal ECG Confirmed by THAI TRIPLETT ([id number]), photographic editor SHARRI VARELA ([id number]) on 08/29/2019 12:52:53 AM Referred By: Confirmed By:THAI TRIPLETT
== END 2019-08-26 03:40 | disposition home or self-care (01) ==
LOC: ERS 02:37
DX: R07.89 Other chest pain (principal)
CPT/HCPCS: 71046; 93005

== ENCOUNTER 2019-09-13 17:26 | Emergency (ER) | payer SELFPAY ==
[2019-09-13 17:54] LABS: #Eosinphils 0.1 thou/uL (0.0-0.7); #Lymphocytes 0.8 thou/uL (1.20-3.40); #Monocytes 0.5 thou/uL (0.11-0.59); #Neutrophils 9.9 thou/uL (1.40-6.50); %Basophils 0.1 % (0.0-1.0); %Lymphocytes 7.2 % (21.0-51.0); %Monocytes 4.6 % (0.0-10.0); %Neutrophils 87.1 % (42.0-75.0); Hemoglobin 14.4 g/dL (12.0-16.0); Mean Corpuscular HGB CONC 34.4 g/dL (32.0-36.0); Mean Corpuscular Hemoglobin 29.7 pg (27.0-31.0); Mean Corpuscular Volume 86.6 fL (78.0-98.0); Mean Platelet Volume 8.2 fL (7.4-10.4); Platelet Count 208 thou/uL (130-400); Red Blood Cell (RBC) Count 4.82 mill/uL (4.20-5.40); White Blood Cell (WBC) Count 11.4 thou/uL (4.8-10.8)
[2019-09-13 18:17] LABS: ALT (SGPT) 46 U/L (8-55); AST (SGOT) 25 U/L (5-34); Albumin 4.4 g/dL (3.5-5.0); Alkaline Phosphatase 75 U/L (40-110); Anion Gap 11 mmol/L (10-20); BUN (Urea Nitrogen) 10 mg/dL (7.0-18.7); Bilirubin, Total 0.9 mg/dL (0.2-1.2); Calc. Creatinine Clearance 0 mL/min (70-130); Calcium 8.9 mg/dL (7.8-10.44); Carbon Dioxide 26 mmol/L (22-29); Chloride 103 mmol/L (98-107); Estimated GFR-MDRD 85; Globulin 2.7 g/dL (2.4-3.5); Glucose 129 mg/dL (70-105); Lipase 29 U/L (8-78); Potassium 3.9 mmol/L (3.5-5.1); Protein, Total 7.1 g/dL (6.0-8.3); Sodium 136 mmol/L (136-145)
[2019-09-13 19:38] LABS: Bilirubin Negative (Negative); Blood, Urine Negative (Negative); Clarity Turbid (Clear); Glucose, Urine (Dipstick) Normal (Negative); Leukocyte 25 Leu/uL (Negative); Nitrite Negative (Negative); Protein, Urine (Dipstick) 300 mg/dL (Neg-Trace); RBC/HPF 0-3 HPF (0-3)
[2019-09-13 19:40] LABS: Bacteria/HPF 1+ HPF (None Seen)
[2019-09-13 19:41] LABS: Pregnancy Test - Urine (BHCG) Negative (Negative); Pregu Control Background? CLEAR/WHITE (CLR/WHITE); Pregu Control Bar Appear? YES (CONTROL BAR); Specific Gravity 1.032 (1.002-1.036)
[2019-09-13] MEDS ORDERED: Ondansetron PF 4 MG/2 ML Vial ONE (19:48)
== END 2019-09-13 20:46 | disposition home or self-care (01) ==
LOC: ERS 17:26
DX: K52.9 Noninfective gastroenteritis and colitis, unspecified (principal); R55 Syncope and collapse; F41.9 Anxiety disorder, unspecified
CPT/HCPCS: 36415; 80053; 81003; 81015; 81025; 83690; 85025; 93005; 96361; 96374; J2405

== ENCOUNTER 2020-09-21 06:08 | Emergency (ER) | payer MEDICAID, SELFPAY ==
[2020-09-21 07:25] LABS: RBC/HPF Greater than 50 HPF (0-3); Squamous Epithelial None Seen HPF (0-3)
[2020-09-21] MEDS ORDERED: Ketorolac Tromethamine 30 MG/ML VIAL ONE (07:25)
[2020-09-21] MEDS ORDERED: Ondansetron PF 4 MG/2 ML Vial ONE (07:25)
[2020-09-21 07:29] LABS: Pregnancy Test - Urine (BHCG) POSITIVE (Negative); Pregu Control Background? CLEAR/WHITE (CLR/WHITE); Pregu Control Bar Appear? YES (CONTROL BAR)
[2020-09-21 07:30] LABS: Bilirubin Unable to Interpret (Negative); Blood, Urine Unable to Interpret (Negative); Clarity Turbid (Clear); Glucose, Urine (Dipstick) Unable to Interpret mg/dL (Negative); Ketone, Urine Unable to Interpret mg/dL (Negative); Leukocyte Unable to Interpret Leu/uL (Negative); Nitrite Unable to Interpret (Negative); Protein, Urine (Dipstick) 70 mg/dL (Neg-Trace); Urobilinogen UNABLE TO INTERPRET mg/dL (Less than 2)
[2020-09-21 07:32] LABS: Bacteria/HPF 1+ HPF (None Seen)
[2020-09-21 07:32] LABS: #Basophils 0.1 thou/uL (0.0-0.2); #Eosinphils 0.2 thou/uL (0.0-0.7); #Monocytes 0.6 thou/uL (0.11-0.59); #Neutrophils 7.2 thou/uL (1.40-6.50); %Basophils 0.7 % (0.0-1.0); %Eosinophils 2.1 % (0.0-10.0); %Lymphocytes 19.6 % (21.0-51.0); %Neutrophils 71.6 % (42.0-75.0); Hemoglobin 12.4 g/dL (12.0-16.0); Mean Corpuscular HGB CONC 33.9 g/dL (32.0-36.0); Mean Corpuscular Hemoglobin 29.7 pg (27.0-31.0); Mean Corpuscular Volume 87.8 fL (78.0-98.0); Mean Platelet Volume 8.1 fL (7.4-10.4); Platelet Count 211 thou/uL (130-400); RBC Distribution Width 11.9 % (11.5-14.5); Red Blood Cell (RBC) Count 4.17 mill/uL (4.20-5.40); White Blood Cell (WBC) Count 10.1 thou/uL (4.8-10.8)
[2020-09-21 07:51] LABS: ALT (SGPT) 41 U/L (8-55); AST (SGOT) 29 U/L (5-34); Alkaline Phosphatase 67 U/L (40-110); Anion Gap 13 mmol/L (10-20); BUN (Urea Nitrogen) 8 mg/dL (7.0-18.7); Bilirubin, Total 0.6 mg/dL (0.2-1.2); Calc. Creatinine Clearance 0 mL/min (70-130); Calcium 8.6 mg/dL (7.8-10.44); Carbon Dioxide 25 mmol/L (22-29); Chloride 103 mmol/L (98-107); Globulin 2.8 g/dL (2.4-3.5); Glucose 139 mg/dL (70-105); Potassium 3.7 mmol/L (3.5-5.1); Protein, Total 6.8 g/dL (6.0-8.3); Sodium 137 mmol/L (136-145)
[2020-09-21] MEDS ORDERED: Acetaminophen 500 MG TAB ONE (09:29)
== END 2020-09-21 09:40 | disposition home or self-care (01) ==
LOC: ERS 06:08
DX: O20.0 Threatened abortion (principal); Z3A.01 Less than 8 weeks gestation of pregnancy
CPT/HCPCS: 36415; 76856; 80053; 81003; 81015; 81025; 84702; 85025; 86900; 86901; 96374; J1885; J2405